=== PATIENT | male | born 1970 | race Caucasian/White ===

== ENCOUNTER 2018-08-26 14:09 | Emergency (ER) | payer MEDICARE ==
[~2018-08-26] VITALS: Ht 167.6 cm; Wt 771.6 kg
[2018-08-26] MEDS ORDERED: PROZAC (14:19)
[2018-08-26] MEDS ORDERED: MIRTAZAPINE (14:20)
== END 2018-08-26 16:30 | disposition home or self-care (01) ==
LOC: ER 14:09
DX: S61.011A Laceration without foreign body of right thumb without damage to nail, initial encounter (principal); S61.511A Laceration without foreign body of right wrist, initial encounter; W45.8XXA Other foreign body or object entering through skin, initial encounter
CPT/HCPCS: 12002; 99283-25